=== PATIENT | male | born 1950 | race Caucasian/White ===

== ENCOUNTER 2018-02-25 15:29 | Emergency (ER) | payer MEDICARE ==
[2018-02-25 16:02] LABS: % BASOPHILS 0.7 % (0.0-2.0); % LYMPHOCYTES 49.5 % (20.0-50.0); % MONOCYTES 10.2 % (2.0-10.0); % NEUTROPHILS 38.6 % (40.0-80.0); HEMATOCRIT 41.2 % (41.0-60); HEMOGLOBIN 13.8 gm/dL (12-16); LYMPHOCYTE ABSOLUTE 2.5 Th/cmm (1.5-3.0); MEAN CELL VOLUME 101.1 fl (80-99); MEAN CORPUSCULAR HEMOGLOBIN 33.9 pg (27.0-31.0); MEAN CORPUSCULAR HGB CONC 33.5 pg (28.0-36.0); MEAN PLATELET VOLUME 7.2 fl; MONOCYTE ABSOLUTE 0.5 Th/cmm (0.3-1.0); NEUTROPHILE ABSOLUTE 1.9 Th/cmm (1.8-8.0); PLATELET COUNT 160 Th/cmm (150-400); RED BLOOD COUNT 4.07 Mil/cmm (3.80-5.80); RED CELL DISTRIBUTION WIDTH 11.9 % (11.5-20.0); WHITE BLOOD COUNT 4.9 Th/cmm (4.8-10.8)
[2018-02-25 16:11] LABS: INR 1.09 (0.5-1.4); PROTHROMBIN TIME (TEST) 11.3 SECONDS (9.5-11.5)
[2018-02-25 16:15] LABS: ALB/GLOB RATIO 1.4 (1.0-1.8); ALBUMIN 3.7 gm/dL (4.2-5.5); ALKALINE PHOSPHATASE 59 U/L (34-104); ANION GAP 11.8 (7.0-16.0); BILIRUBIN,TOTAL 0.3 mg/dL (0.3-1.0); BUN - UREA NITROGEN 22 mg/dL (7-25); CALCIUM SERUM 9.6 mg/dL (8.6-10.3); CARBON DIOXIDE 27.8 mEq/L (21.0-31.0); CHLORIDE 104 mEq/L (98-107); CREATININE - SERUM 0.8 mg/dL (0.7-1.3); GFR AFRICAN-AMERICAN > 60.0 ml/min (>90); GFR NON AFRICAN-AMERICAN > 60.0 ml/min; GLUCOSE 87 mg/dL (70-105); POTASSIUM SERUM 4.6 mEq/L (3.5-5.1); SGOT 15 U/L (13-39); SGPT/ALT 9 U/L (7-52); SODIUM SERUM 139 mEq/L (136-145); TOTAL PROTEIN,SERUM 6.3 gm/dL (6.0-8.3)
--- NOTE | 2018-02-25 16:25 | ED Physician Chart ---
ED Chief Complaint/HPI - Patient Information Date Seen:: 02/25/18 Time Seen:: 16:00 Chief Complaint:: weakness History of Present Illness:: this is a 67 yo male with generalized weakness with thyroid disease, seizures and bph. 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 the patient denies fever and vomiting. he denies the intake of alcohol but admits to smoking. this patient denies headache, dizziness, nausea and diarrhea. this denies poor intake. this patient denies chest pain and abdominal pain. he denies difficulty urinating. he denies having any difficulty thinking or remembering information. he denies blurred vision or decrease in visual acuity. he denies localize weakness or numbness. he states that he has been able to sleep at night. Allergies:: Allergies Allergy/AdvReac Type Severity Reaction Status Date / Time nicotine Allergy Verified 02/25/18 15:45 Vitals:: Vital Signs - 8 hr 02/25/18 15:46 Temp 97.9 F HR 69 RR 18 BP 98/47 O2 Sat % 97 Historian:: Patient, Medical Records Review:: Nurse's Note Reviewed ED Past Medical History - Past Medical History Obtainable: Yes Past Medical History: Seizures, Thyroid disorder, Other (status post brain surgery) Family History: None Social History: Smoker, No Alcohol, Illicit Drug Use (mj), , Care Facility Surgical History: other (removal of a brain tumor) Psychiatricy History: Depression Family Medical History - Family Member Mother History Unknown: Yes ED Physical Exam - Physical Examination General/Constitutional: Awake, Well-developed, well-nourished, Alert, No distress, GCS 15, Non-toxic appearing, Ambulatory Head: Atraumatic Eyes: Lids, conjuctiva normal, PERRL, EOMI Skin: Nl inspection, No rash, No ecchymosis, Well hydrated, No lymphadenopathy Other Skin comments:: facial skin peeling ENMT: External ears, nose nl, Nasal exam nl, Lips, teeth, gums nl Neck: Nontender, Full ROM w/o pain, No JVD, No nuchal rigidity, No bruit, No mass, No stridor Respiratory: Nl effort/Exclusion, Clear to Auscultation, No Wheeze/Rhonchi/Rales Cardio Vascular: RRR, No murmur, gallop, rubs, NL S1 S2 GI: No tenderness/rebounding/guarding (mild tenderness left upper quadrant), No organomegaly, No hernia, Normal BS's, Nondistended, No mass/bruits, No McBurney tenderness : No CVA tenderness Extremities: No tenderness or effusion, Full ROM, normal strength in all extremities, No edema, Normal digits & nails Neuro/Psych: Alert/oriented, DTR's symmetric, Normal sensory exam, Normal motor strength, Judgement/insight normal, Mood normal, Normal gait, No focal deficits Misc: Normal back, No paraspinal tenderness ED Labs/Radiology/EKG Results - Lab Results Results: Laboratory Tests 02/25/18 02/25/18 15:50 15:50 WBC 4.9 RBC 4.07 Hgb 13.8 Hct 41.2 MCV 101.1 H MCH 33.9 H MCHC Differential 33.5 RDW 11.9 Plt Count 160 MPV 7.2 Neutrophils % 38.6 L Lymphocytes % 49.5 Monocytes % 10.2 H Eosinophils % 1.0 Basophils % 0.7 PT 11.3 INR 1.09 PTT (Actin FS) 26.4 Abnormal Lab Results 02/25/18 02/25/18 02/25/18 15:50 15:50 15:50 WBC 4.9 RBC 4.07 Hgb 13.8 Hct 41.2 MCV 101.1 H MCH 33.9 H MCHC Differential 33.5 RDW 11.9 Plt Count 160 MPV 7.2 Neutrophils % 38.6 L Lymphocytes % 49.5 Monocytes % 10.2 H Eosinophils % 1.0 Basophils % 0.7 PT 11.3 INR 1.09 PTT (Actin FS) 26.4 Sodium 139 Potassium 4.6 Chloride 104 Carbon Dioxide 27.8 Anion Gap 11.8 BUN 22 Creatinine 0.8 Est GFR ( Amer) > 60.0 Est GFR (Non-Af Amer) > 60.0 BUN/Creatinine Ratio 27.5 Glucose 87 Calcium 9.6 Total Bilirubin 0.3 AST 15 ALT 9 Alkaline Phosphatase 59 Troponin I Total Protein 6.3 Albumin 3.7 L Globulin 2.6 Albumin/Globulin Ratio 1.4 TSH Urine Source Urine Color Urine Clarity Urine pH Ur Specific [place] Urine Protein Urine Glucose (UA) Urine Ketones Urine Blood Urine Nitrate Urine Bilirubin Urine Urobilinogen Ur Leukocyte Esterase Urine RBC Urine WBC Ur Epithelial Cells Urine Bacteria Urine Mucus Valproic Acid 02/25/18 02/25/18 02/25/18 15:50 15:50 15:50 WBC RBC Hgb Hct MCV MCH MCHC Differential RDW Plt Count MPV Neutrophils % Lymphocytes % Monocytes % Eosinophils % Basophils % PT INR PTT (Actin FS) Sodium Potassium Chloride Carbon Dioxide Anion Gap BUN Creatinine Est GFR ( Amer) Est GFR (Non-Af Amer) BUN/Creatinine Ratio Glucose Calcium Total Bilirubin AST ALT Alkaline Phosphatase Troponin I < 0.01 L Total Protein Albumin Globulin Albumin/Globulin Ratio TSH 2.37 Urine Source Urine Color Urine Clarity Urine pH Ur Specific Royal Urine Protein Urine Glucose (UA) Urine Ketones Urine Blood Urine Nitrate Urine Bilirubin Urine Urobilinogen Ur Leukocyte Esterase Urine RBC Urine WBC Ur Epithelial Cells Urine Bacteria Urine Mucus Valproic Acid 109.5 H 02/25/18 16:15 WBC RBC Hgb Hct MCV MCH MCHC Differential RDW Plt Count MPV Neutrophils % Lymphocytes % Monocytes % Eosinophils % Basophils % PT INR PTT (Actin FS) Sodium Potassium Chloride Carbon Dioxide Anion Gap BUN Creatinine Est GFR ( Amer) Est GFR (Non-Af Amer) BUN/Creatinine Ratio Glucose Calcium Total Bilirubin AST ALT Alkaline Phosphatase Troponin I Total Protein Albumin Globulin Albumin/Globulin Ratio TSH Urine Source CLEAN C Urine Color YELLOW Urine Clarity CLEAR Urine pH 6.0 Ur Specific Royal 1.025 Urine Protein NEGATIVE Urine Glucose (UA) NEGATIVE Urine Ketones TRACE Urine Blood NEGATIVE Urine Nitrate NEGATIVE Urine Bilirubin NEGATIVE Urine Urobilinogen 0.2 Ur Leukocyte Esterase NEGATIVE Urine RBC 0-2 H Urine WBC 2-5 Ur Epithelial Cells FEW Urine Bacteria FEW Urine Mucus MODERATE Valproic Acid - Radiology Results Results: ct scan = nad chest x-ray yesterday normal - EKG Interpretations EKG Time:: 15:52 Rate & Rhythm: RATE = 66 SINUS [place]: RIGHT AXIS ED Assessment - Assessment General Assessment: MILD GASTRITIS ED Septic Shock - . Is Septic Shock (SBP<90, OR Lactate>4 mmol\L) present?: No - <6hrs of presentation: Vital Signs: Vital Signs - 8 hr 02/25/18 15:46 Temp 97.9 F HR 69 RR 18 BP 98/47 O2 Sat % 97 ED Reassessment (Disposition) - Diagnosis Diagnosis:: GERD SEIZURE DISORDER - Aftercare/Follow up Instructions Aftercare/Follow-Up Instructions:: Counseled pt regarding lab results/diagnosis & need follow up, Refer to Discharge Instructions, Counseled pt & family regarding lab results/diagnosis & need follow up Medication Prescribed:: pepcid 20 mg po q am. - Patient Disposition Discharge/Transfer:: Residential/Boarding Care Condition at Disposition:: Unchanged
[2018-02-25 17:23] LABS: URINE SOURCE CLEAN C
[2018-02-25 17:29] LABS: URINE BILIRUBIN NEGATIVE (NEGATIVE); URINE BLOOD NEGATIVE (NEGATIVE); URINE GLUCOSE (UA) NEGATIVE (NEGATIVE); URINE KETONE TRACE mg/dL (NEGATIVE); URINE LEUKOCYTE ESTERASE NEGATIVE (NEGATIVE); URINE NITRATE NEGATIVE (NEGATIVE); URINE PROTEIN NEGATIVE (NEGATIVE); URINE UROBILINOGEN 0.2 E.U./dL (0.2 - 1.0)
[2018-02-25 18:02] LABS: URINE CLARITY CLEAR (CLEAR); URINE COLOR YELLOW; URINE MICROSCOPIC INDICATED? YES
[2018-02-25 18:04] LABS: URINE BACTERIA FEW /hpf (NONE SEEN); URINE EPITHELIAL CELLS FEW /lpf (FEW); URINE RBC 0-2 /hpf (0-5)
--- NOTE | 2018-02-26 09:08 | Diagnostic Imaging Report ---
CT scan abdomen and pelvis without intravenous contrast HISTORY: Pain Total DLP equals 486 CTDI equals 10.8 Axial sections were obtained from the xiphoid process down to the pubic symphysis. An approximate 1.0 cm cyst is seen within the posterior segment of the right lobe the liver. The spleen appears normal. Intraluminal calcification noted in the gallbladder consistent with cholelithiasis. No focal abnormality seen within the pancreas. No focal renal lesions. No hydronephrosis. The exam of the pelvis demonstrates preservation of normal fat planes. There is moderate enlargement of the prostate gland. IMPRESSION: 1. No acute abnormalities 2. Findings consistent with cholelithiasis 3. Moderately enlarged prostate gland
--- NOTE | 2018-02-26 09:17 | Diagnostic Imaging Report ---
Chest x-ray single view History: Chest pain The heart size is normal. No focal pulmonary parenchymal processes. No hilar or mediastinal abnormalities. Impression: No acute abnormalities
== END 2018-02-25 20:06 | disposition short-term general hospital (02) ==
LOC: ER 15:29
DX: K21.9 Gastro-esophageal reflux disease without esophagitis (principal); G40.909 Epilepsy, unspecified, not intractable, without status epilepticus; K29.60 Other gastritis without bleeding; F32.9 Major depressive disorder, single episode, unspecified; E07.9 Disorder of thyroid, unspecified; F17.200 Nicotine dependence, unspecified, uncomplicated; Z98.890 Other specified postprocedural states; Z88.8 Allergy status to other drugs, medicaments and biological substances
CPT/HCPCS: 36415-UA; 71045-TC; 80053-TC; 80164-TC; 80299-90; 81001-TC; 84443-TC; 84484-TC; 85025-TC; 85610-TC; 85730-TC; 93005; Z7502